=== PATIENT | female | born 1995 | race Caucasian/White ===

== ENCOUNTER → 2018-12-08 | Outpatient (CLI) | payer OTHER ==
--- NOTE | 2018-12-08 17:57 | MR ---
MRI CERVICAL SPINE: CLINICAL HISTORY: Cervical region radiculopathy per order. Headache with left-sided neck numbness for 9 months causing pain or weakness into left arm and fingers per patient. TECHNIQUE: Multiplanar, multisequence imaging of the cervical spine is performed without IV contrast. COMPARISON: None. FINDINGS: Coronal images show dextroconvex scoliotic curvature positioning centered in the upper to m idthoracic spine Sagittal images of the cervical spine show the craniocervical junction to appear wit hin normal limits. The cervical and upper thoracic spinal cord is normal in course, caliber, and sig nal. Vertebral alignment is anatomic. The vertebral body and intravertebral disk heights are normal . There is posterior disc herniation effacing anterior thecal sac at T3-T4 level on sagittal image 1 2. The bone marrow signal intensity is within normal limits. No significant spurring is seen. Axial images show some right-sided uncovertebral facet degenerative change causing mild narrowing at C3-C4 level. Other cervical levels are felt within normal limits without disc herniation or neural fo raminal narrowing. IMPRESSION: No significant finding in the cervical spine seen to account for patient's left-sided upp er extremity radiculopathy type symptoms. Scoliotic curvature with prominent disc herniation T3-T4 le apryl noted. Consider dedicated MRI thoracic spine to further evaluate.
== END | disposition home or self-care (01) ==
LOC: RADMRIMAIN 16:20
PROVIDERS: ATTEND Family Medicine
DX: M54.12 Radiculopathy, cervical region (principal)
CPT/HCPCS: 72141

== ENCOUNTER → 2018-12-12 | Outpatient (CLI) | payer OTHER ==
--- NOTE | 2018-12-12 21:34 | MR ---
MR thoracic spine HISTORY: Intervertebral disc displacement thoracic Multiplanar multisequence imaging through the thoracic spine No comparisons Thoracic vertebral bodies show preserved height, alignment, and bone marrow signal. There is a mild s hiren curvature. Thoracic cord signal is maintained. T3-4 shows a posterior disc herniation which contacts the anterior thoracic cord. There is associated loss of disc signal. Minimal posterior disc bulge at T5-6, T6-7 causes slight anterior mass effect o n the thecal sac as at T7-8 and T9-10. No significant spinal stenosis. No significant foraminal encro achment. T11-T12 also shows loss of disc height and signal, posterior minimal disc bulge noted. IMPRESSION: Degenerative disc disease. Posterior disc herniation T3-4 as described.
== END ==
LOC: RADMRIMAIN 20:25
PROVIDERS: ATTEND Family Medicine
DX: M51.24 Other intervertebral disc displacement, thoracic region (principal); M51.34 Other intervertebral disc degeneration, thoracic region
CPT/HCPCS: 72146